=== PATIENT | female | born 1985 | race Caucasian/White ===

== ENCOUNTER 2019-06-13 01:13 | Inpatient (IN) | payer MEDICAID ==
[~2019-06-13] VITALS: Ht 152.4 cm; Wt 59.9 kg
[2019-06-13] MEDS: LACTATED RINGERS 1,000 ML IV SCH ×3 (02:34→17:30)
[2019-06-13] MEDS ORDERED: DEXT 5%/LR + PITOCIN 20UNITS/L 1,000 ML IV SCH (02:34)
[2019-06-13] MEDS ORDERED: CARBOPROST TROMETHAMINE 250 MCG/ML AMPUL IM PRN (02:45)
[2019-06-13] MEDS ORDERED: METHYLERGONOVINE MALEATE 0.2 MG/ML IM PRN (02:45)
[2019-06-13] MEDS ORDERED: LIDOCAINE HCL 1% 20ML VIAL (Pyxis) INJ INFIL SCH (02:45)
[2019-06-13] MEDS ORDERED: MISOPROSTOL 100MCG TABLET VG SCH (02:45)
[2019-06-13 03:23] LABS: CLARITY URINE TURBID (CLEAR); KETONES URINE 1+ (NEGATIVE); LEUKOCYTE ESTERASE URINE 2+ (NEGATIVE); NITRITE URINE NEGATIVE (NEGATIVE); OCCULT BLOOD URINE 3+ (NEGATIVE); PH URINE 7.5 (4.5-8.0); PROTEIN URINE 1+ (NEGATIVE); SPECIFIC GRAVITY URINE 1.017 (1.005-1.030)
[2019-06-13 03:26] LABS: COLOR URINE BLOODY (YELLOW)
[2019-06-13 03:28] LABS: BASOPHILS % 0.7 % (0.0-2.0); EOSINOPHILS % 0.7 % (0.0-5.0); HEMATOCRIT. 36.8 % (36.0-48.0); HEMOGLOBIN. 12.5 g/dL (12.0-16.0); LYMPHOCYTES % 18.8 % (20.0-50.0); MEAN CORPUSCULAR HEMOGLOBIN 31.8 pg (28.0-32.0); MEAN CORPUSCULAR VOLUME 93.7 fL (81.0-99.0); MEAN PLATELET VOLUME 11.4 fl (7.4-10.4); NEUTROPHILS % 72.8 % (40.0-76.0); PLATELET 156 x1000/uL (130-400); RED BLOOD CELL COUNT 3.93 mill/uL (4.2-5.4); RED CELL DISTRIBUTION WIDTH 14.1 % (11.6-14.6)
[2019-06-13 03:29] LABS: INR 0.9; PARTIAL THROMBOPLASTIN TIME 26.6 sec (23.4-31.0); PROTHROMBIN TIME 9.3 sec (9.6-11.0)
[2019-06-13 03:46] LABS: *COCAINE SCREEN URINE NEGATIVE (NEGATIVE)
[2019-06-13 03:47] LABS: *AMPHETAMINES SCREEN URINE NEGATIVE (NEGATIVE); *BARBITURATES SCREEN URINE NEGATIVE (NEGATIVE); *BENZODIAZEPINES SCREEN URINE NEGATIVE (NEGATIVE); CANNABINOID URINE SCREEN NEGATIVE (NEGATIVE); METHADONE URINE SCREEN NEGATIVE (NEGATIVE); OPIATES URINE SCREEN NEGATIVE (NEGATIVE); PHENCYCLIDINE URINE SCREEN NEGATIVE (NEGATIVE)
[2019-06-13 04:01] LABS: HEPATITIS B SURFACE ANTIGEN NEGATIVE
[2019-06-13] MEDS ORDERED: LIDOCAINE HCL 2%/EPINEPHRINE 1:100,000 20 ML VIAL INFIL ONE ×2 (10:22)
[2019-06-13] MEDS ORDERED: EPHEDRINE SULFATE 50MG/ML VIAL ONE (10:22)
[2019-06-13] MEDS: BUTORPHANOL TARTRATE 2 MG/ML VIAL IV PRN ×2 (16:16→20:33)
[2019-06-13] MEDS ORDERED: ROPIVACAINE HCL/PF EPIDURAL 200 ML EPI SCH (20:00)
[2019-06-14] MEDS ORDERED: FENTANYL CITRATE/PF 50MCG/ML 2ML VIAL ONE (05:50)
[2019-06-14] MEDS ORDERED: MORPHINE SULFATE/PF 1MG/ML 10ML AMP ONE (05:51)
[2019-06-14] MEDS ORDERED: OXYTOCIN 10 UNITS/ML 1ML ONE ×2 (05:59→06:26)
[2019-06-14] MEDS ORDERED: CEFAZOLIN SODIUM 1000MG/VIAL ONE (05:59)
[2019-06-14] MEDS ORDERED: CITRIC ACID/SODIUM CITRATE SOLN 30ML UDC PO NR (06:00)
[2019-06-14] MEDS ORDERED: ONDANSETRON HCL 4MG/2ML INJ ONE (06:17)
[2019-06-14] MEDS ORDERED: METOCLOPRAMIDE HCL 10MG/2ML VIAL ONE (06:17)
[2019-06-14] MEDS ORDERED: KETOROLAC 60MG/2ML VIAL IM ONE (06:37)
[2019-06-14] MEDS ORDERED: EPHEDRINE SULFATE 50MG/ML VIAL ONE (06:40)
[2019-06-14] MEDS ORDERED: DIPHENHYDRAMINE 50MG/ML VIAL IV PRN (07:45)
[2019-06-14] MEDS ORDERED: BUTORPHANOL TARTRATE 2 MG/ML VIAL IV PRN (07:45)
[2019-06-14] MEDS ORDERED: NALOXONE HCL 0.4 MG/ML 1ML VIAL IV PRN (07:45)
[2019-06-14 10:00] VITALS: BP 115/77
[2019-06-14] MEDS ORDERED: ONDANSETRON HCL 4MG/2ML INJ IV PRN ×2 (10:00)
[2019-06-14 10:30] VITALS: BP 112/70
[2019-06-14] MEDS: KETOROLAC 30MG/ML VIAL IV SCH ×2 (14:16→19:49)
[2019-06-14 16:45] VITALS: BP 98/58
[2019-06-14 19:00] VITALS: BP 106/56
[2019-06-14] MEDS ORDERED: DEXT 5%/LR + PITOCIN 20UNITS/L 1,000 ML IV SCH (20:11)
[2019-06-14] MEDS ORDERED: BISACODYL 10MG SUPP PR PRN (20:15)
[2019-06-14] MEDS ORDERED: HYDROMORPHONE HCL/PF 2MG/ML CPJ IM PRN (20:15)
[2019-06-14] MEDS ORDERED: RHO(D) IMMUNE GLOBULIN 300 MCG/SYR IM PRN (20:15)
[2019-06-14] MEDS ORDERED: IBUPROFEN 400MG TABLET PO PRN (20:15)
[2019-06-15 00:01] VITALS: BP 91/59
[2019-06-15] MEDS ORDERED: DEXT 5%/LR + PITOCIN 20UNITS/L 1,000 ML IV SCH (01:30)
[2019-06-15] MEDS: KETOROLAC 30MG/ML VIAL IV SCH (02:00)
[2019-06-15 04:00] VITALS: BP 100/61
[2019-06-15 07:30] VITALS: BP 103/60
[2019-06-15 08:14] LABS: BASOPHILS % 0.3 % (0.0-2.0); EOSINOPHILS % 0.4 % (0.0-5.0); HEMATOCRIT. 29.3 % (36.0-48.0); HEMOGLOBIN. 9.9 g/dL (12.0-16.0); LYMPHOCYTES % 9.9 % (20.0-50.0); MEAN CORPUSCULAR HEMOGLOBIN 31.8 pg (28.0-32.0); MEAN CORPUSCULAR VOLUME 93.9 fL (81.0-99.0); MEAN PLATELET VOLUME 10.6 fl (7.4-10.4); MONOCYTES % 4.6 % (2.0-8.0); NEUTROPHILS % 84.8 % (40.0-76.0); PLATELET 150 x1000/uL (130-400); RED BLOOD CELL COUNT 3.12 mill/uL (4.2-5.4); RED CELL DISTRIBUTION WIDTH 14.4 % (11.6-14.6)
[2019-06-15] MEDS: IBUPROFEN 800MG TABLET PO PRN (14:53)
[2019-06-15 15:45] VITALS: BP 119/79
[2019-06-15 19:30] VITALS: BP 108/61
[2019-06-16 04:00] VITALS: BP 105/56
[2019-06-16 07:54] VITALS: BP 107/67
[2019-06-16] MEDS: IBUPROFEN 800MG TABLET PO PRN (08:37)
[2019-06-16] MEDS ORDERED: TETANUS, DIPHTHERIA, PERTUSSIS VAC/PF 0.5ML (>7YR OLD) IM ONE (09:00)
[2019-06-16 15:42] VITALS: BP 95/60
[2019-06-16 20:00] VITALS: BP 118/79
[2019-06-17 04:00] VITALS: BP 109/70
[2019-06-17 08:30] VITALS: BP 114/62
[2019-06-17] MEDS: IBUPROFEN 800MG TABLET PO PRN (11:17)
== END 2019-06-17 13:25 | disposition home or self-care (01) | DRG 540 ==
LOC: OBSVTOIN 01:13 → 8 EST LDRP 01:13 → 8EST 06-14 10:00
PROVIDERS: ADMIT Obstetrics & Gynecology; ATTEND Obstetrics & Gynecology
PROC: 10D00Z1 Extraction of Products of Conception, Low, Open Approach (ICD-10-PCS; principal; 2019-06-15)
DX: O69.1XX0 Labor and delivery complicated by cord around neck, with compression, not applicable or unspecified (principal); O36.5930 Maternal care for other known or suspected poor fetal growth, third trimester, not applicable or unspecified; O34.211 Maternal care for low transverse scar from previous cesarean delivery; O64.0XX0 Obstructed labor due to incomplete rotation of fetal head, not applicable or unspecified; O62.2 Other uterine inertia; O76 Abnormality in fetal heart rate and rhythm complicating labor and delivery; Z37.0 Single live birth; Z3A.39 39 weeks gestation of pregnancy
CPT/HCPCS: 36415; 76805; 76818; 80305; 81003; 86592; 86703; 86762; 86850; 86900; 87340; 88307; 90715; G0378; J0595; J0690; J1885; J2274; J2405; J2590; J2765; J2795; J3010; J3490; J7120